=== PATIENT | female | born 1955 | race African-American/Black ===

== ENCOUNTER 2022-05-13 07:54 | Emergency (ER) | payer OTHER, MEDICAID, SELFPAY ==
[2022-05-13] VITALS (8 sets, daily range): BP systolic 137–160; BP diastolic 85–98; PULSE 89–109; RESP 18–22; TEMP 36.6; O2SAT 96–100
--- NOTE | ~2022-05-13 | US_ITS ---
EXAMINATION: US venous doppler [facility] DATE: 05/13/2022 09:57 INDICATION: Left lower limb swelling TECHNIQUE: Lopez scale images without and with compression and Doppler images of the left lower extrem ity veins were obtained. COMPARISON: None FINDINGS: The left profunda femoral vein is partially compressible but patent The left common femoral vein, femoral vein, popliteal vein, peroneal trunk, posterior tibial veins, and greater saphenous ve in are patent. IMPRESSION: 1. Patent but partially compressible profunda femoral vein which could reflect partial thrombosis. These findings were discussed with Michaela Andrade PA-C in the Emergency Department at 1012 jose rs on 05/13/2022. Reviewed, dictated and finalized at location A. IMPRESSION: 1. Patent but partially compressible profunda femoral vein which could reflect partial thrombosis. These findings were discussed with Michaela Andrade PA-C in the Emergency Department at 1012 hours on 05/13/2022.
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
--- NOTE | ~2022-05-13 | XR_ITS ---
EXAMINATION: XR knee LT min 4V DATE: 05/13/2022 09:32 INDICATION: Left knee pain. TECHNIQUE: 4 views of left knee were obtained. COMPARISON: None. FINDINGS: There is a total left knee arthroplasty without patellar resurfacing in near-anatomic align ment. No periprosthetic lucency to suggest loosening or infection. No fracture. There are osteophytes of the patella. No knee joint effusion. IMPRESSION: 1. Total left knee arthroplasty in near-anatomic alignment. 2. Mild osteoarthritis of patellofemoral compartment. Reviewed, dictated and finalized at location A.
--- NOTE | 2022-05-13 09:09 | ED.LOWEXIN ---
HPI - Extremity Injury (Lower) General Chief Complaint: Extremity Injury, Lower Stated Complaint: L LEG PAIN [id number] Time Seen by Provider: 05/13/22 08:16 Source: patient Mode of arrival: ambulatory Limitations: no limitations History of Present Illness HPI Narrative: Patient is a 66-year-old female who presents the ED with report of left knee pain x1 month. Patient reports she has been seen at several different hospitals over the past month for this pain. She has had x-rays and repeatedly been told she has arthritis. She does note a history of previous left knee replacement. She states her leg occasionally gives out on her due to the pain. She fell last week and was evaluated at [facility]. Patient has been taking aspirin and BC powder at home for the pain. She has not been to see an computer system specialist. She states the pain radiates down her LLE. No numbness/tingling or injury since last week. She does note occasional swelling in her LLE. Related Data Allergies Allergy/AdvReac Type Severity Reaction Status Date / Time adhesive Allergy Severe Rash Verified 05/13/22 08:11 Review of Systems Review of Systems: CONSTITUTIONAL: Denies fever, chills, or sweats. GASTROINTESTINAL: Denies abdominal pain, nausea, vomiting. SKIN: Reports swelling in LLE. MUSCULOSKELETAL: Reports L knee pain, radiating down LLE. NEUROLOGIC: Denies tingling, numbness, or weakness. All systems reviewed & are unremarkable except as noted in HPI and below PMFSH Past Medical History Medical History (Updated 05/13/22 @ 14:33 by Michaela Andrade PA-C) Depression Diabetes mellitus GERD (gastroesophageal reflux disease) HLD (hyperlipidemia) HTN (hypertension) Surgical History Surgical History (Updated 05/13/22 @ 09:13 by Michaela Andrade PA-C) History of left knee replacement Social History Social History (Updated 05/13/22 @ 09:13 by Michaela Andrade PA-C) Smoking status: Never smoker Exam Narrative: GENERAL: Well appearing, obese, non-toxic, in no acute distress. HEAD: Normocephalic, atraumatic. NECK: Supple. No adenopathy, no masses. RESPIRATORY: Airway patent, respirations nonlabored. Clear to auscultation bilaterally, no rales, rhonchi, wheezing. CARDIOVASCULAR: Regular rate and rhythm without murmurs, rubs, or gallops. Pedal pulses 2+ and equal bilaterally. ABDOMINAL: Soft, nontender, nondistended, no hepatosplenomegaly. Normoactive BS. MUSCULOSKELETAL: Moves all extremities. Strength/ROM intact without gross deformities. TTP over anterior L knee, tenderness diffusely throughout L calf. No significant unilateral edema. No palpable joint effusion. No redness/warmth of L knee. No wounds. SKIN: Warm, dry, normal color. No rashes. NEURO: A&O X3. Speech clear. Cranial nerves II-XII grossly intact. Steady gait. No ataxic movements. PSYCHIATRIC: Appropriate mood and affect. Normal interaction. Course Vital Signs Vital signs: Vital Signs Temperature 97.8 F 05/13/22 08:04 Pulse Rate 109 H 05/13/22 08:04 Respiratory Rate 22 H 05/13/22 08:04 Blood Pressure 156/98 H 05/13/22 08:04 Pulse Oximetry 100 05/13/22 08:04 Oxygen Delivery Room Air 05/13/22 08:04 Temperature 97.8 F 05/13/22 08:04 Pulse Rate 99 05/13/22 15:18 Respiratory Rate 18 05/13/22 15:18 Blood Pressure 137/91 H 05/13/22 15:18 Pulse Oximetry 100 05/13/22 15:18 Oxygen Delivery Room Air 05/13/22 08:04 MDM - Extremity Injury (Lower) MDM Narrative Medical decision making narrative: Patient to ED with 1 month history of left knee pain. No known injury recently. Patient tachycardic and mildly tachypneic upon arrival, likely due to pain. Patient with tenderness diffusely throughout left lower extremity on exam. No signs or symptoms to suggest septic joint on exam. X-ray of left knee showing anatomic alignment of left knee joint replacement. No effusion, patellar resurfacing, abnormal lucency. I did obtai
[2022-05-13] MEDS: KETOROLAC 30 MG/ML VIAL (*BKC) IM (09:58)
[2022-05-13] MEDS: MORPHINE SULFATE (*CRX) 4 MG/ML INJ IV PUSH (11:17)
[2022-05-13] MEDS: ONDANSETRON INJ 4 MG/2 ML VIAL IV PUSH (11:17)
[2022-05-13 11:18] LABS: Basophils Absolute Auto 0.1 K/mm3 (0.0-0.1); Basophils Percent Auto 0.7 % (0.2-1.2); Eosinophils Absolute Auto 0.1 K/mm3 (0-0.3); Eosinophils Percent Auto 1.7 % (0-4.4); Hematocrit 47.9 % (37.0-47.0); Hemoglobin 15.9 g/dL (12.0-15.0); Immature Granulocyte Absolute 0.02 K/mm3 (0.00-0.031); Immature Granulocyte Percent A 0.2 % (0-0.5); Lymphocytes Absolute Auto 1.73 K/mm3 (0.9-3.2); Lymphocytes Percent Auto 21.3 % (18.3-44.2); Mean Corpuscular HGB Conc 33.2 g/dl (32-36); Mean Corpuscular Hemoglobin 29.3 pg (26-34); Mean Corpuscular Volume 88.2 fl (80-100); Mean Platelet Volume 9.4 fl (7.4-10.4); Monocytes Absolute Auto 0.5 K/mm3 (0.1-0.6); Monocytes Percent Auto 5.7 % (2.6-8.5); Neutrophils Absolute Auto 5.7 K/mm3 (1.3-6.7); Neutrophils Percent Auto 70.4 % (45.5-73.1); Platelet Count Result 331 k/mm3 (150-375); Red Blood Count 5.43 M/mm3 (4.2-5.4); Red Cell Distribution Width 15.4 % (11.5-14.5); White Blood Count 8.1 K/mm3 (4.5-10.0)
[2022-05-13 11:30] LABS: Alanine Aminotransferase 28 U/L (6-35); Albumin Level 4.4 g/dL (3.5-5.1); Alkaline Phosphatase 64 U/L (38-126); Anion Gap 8 mmol/L (8-16); Aspartate Amino Transferase 37 U/L (14-36); Bilirubin,Total 0.6 mg/dL (0.2-1.3); Blood Urea Nitrogen 20 mg/dL (7-17); Calcium 9.8 mg/dL (8.4-10.2); Carbon Dioxide 30 mmol/L (22-30); Chloride 104 mmol/L (98-107); Estimated Glomerular Filt Rate > 60; Glucose 96 mg/dL (65-110); Potassium 4.1 mmol/L (3.4-5.0); Sodium 142 mmol/L (137-145)
[2022-05-13 13:13] LABS: INR 1.1; Prothrombin Time 13.6 Seconds (11.1-14.7)
[2022-05-13 13:14] LABS: Partial Thromboplastin Time 29.6 SECONDS (22.3-36.8)
--- NOTE | 2022-05-13 14:14 | PC.NURSE ---
Pt walked good with walker, O2 sat 96-97% during the whole time. Mild lumping to the left, due to pain in the left knee.
[2022-05-13] MEDS: APIXABAN 5 MG TABLET 10 MG PO (15:14)
== END 2022-05-13 15:48 | disposition home or self-care (01) ==
PROVIDERS: Physician Assistant; Emergency Provider Emergency Medicine; PCP Family Medicine
DX: I82.412 Acute embolism and thrombosis of left femoral vein (principal); E04.1 Nontoxic single thyroid nodule; E11.9 Type 2 diabetes mellitus without complications; I10 Essential (primary) hypertension; E78.5 Hyperlipidemia, unspecified; K21.9 Gastro-esophageal reflux disease without esophagitis; Z96.652 Presence of left artificial knee joint; M17.12 Unilateral primary osteoarthritis, left knee
CPT/HCPCS: 36415; 71275; 73564; 80053; 85025; 85610; 85730; 93971; 96372; 96374; 96375; 99284; A9270; J1885; J2270; J2405; Q9967